=== PATIENT | female | born 1985 | race Caucasian/White ===

== ENCOUNTER 2024-07-23 00:01 | Emergency (ER) | payer BC, MEDICAID, SELFPAY ==
[2024-07-23 00:06] VITALS: BP 153/101; PULSE 105; RESP 18; TEMP 36.7; O2SAT 100; BMI 34.7
--- NOTE | 2024-07-23 01:01 | ED_ITS ---
HPI - Wound/Laceration 2 General: Chief Complaint: Wound/Laceration Stated Complaint: cut left thumb very deep Time Seen by Provider: 07/23/24 00:46 History of Present Illness: 38-year-old female with laceration when throwing a glass pickle jar into recycle bin across the lateral portion of distal right thumb. No nail involvement. This occurred just prior to events. Tetanus is not up-to-date. Bleeding is controlled. Associated symptoms: Denies chills or fever(s) Related Data Home Medications ?Medication ?Instructions ?Recorded ?Confirmed LOMOTRIGINE PO 09/15/19 01/20/24 buprenorphine 4 mg-naloxone 1 mg 1 film sublingual [place] LY 09/15/19 01/20/24 sublingual film (Suboxone) citalopram 20 mg tablet (Celexa) 20 mg PO DAILY 01/20/24 Previous Rx's ?Medication ?Instructions ?Recorded fluticasone propionate 50 1 spray intranasal DAILY PRN 10/16/22 mcg/actuation nasal allergy symptoms #16 grams spray,suspension (Flonase Allergy Relief) clindamycin HCl 300 mg capsule 300 mg PO Q6H 7 days #2 8 caps 01/18/24 cephalexin 500 mg capsule 500 mg PO BID 4 days #8 caps 07/23/24 Allergies Allergy/AdvReac Type Severity Reaction Status Date / Time Penicillins Allergy ALGY-Hives Verified 01/20/24 15:54 Review of Systems 2 Const: Denies: fever(s) or chills Musc: Reports: joint pain, joint redness and other (laceration) Skin/Breast: Reports: surgical incision PFSH ED 2 PFSH: Social History Smoking and tobacco/nicotine status: unknown if used tobacco/nicotine Physical Exam 2 Extremity: COMMON NORMALS: full ROM and capillary refill normal NARRATIVE EXTREMITY EXAM: laceration RIGHT UPPER EXTREMITY: Yes hand & digits EXTREMITY IMAGE (FRONT): 1. 5.5 cm laceration to right thumb Procedures Laceration Laceration 1: Site: upper extremity (right thumb) Side (If applicable): right Size (cm): 5.5 Description: linear Depth: simple, single layer Local Anesthetic: lidocaine 1% Amount of anesthesia used (mL): 4 Pre-repair: wound explored and irrigated extensively Skin layer closed with: nylon Size (cm): 4-0 Number of sutures: 6 Technique: simple, interrupted Course 2 Vital Signs: Vital signs: Vital Signs Temperature 98.0 F 07/23/24 00:06 Pulse Rate 105 H 07/23/24 00:06 Respiratory Rate 18 07/23/24 00:06 Blood Pressure 153/101 07/23/24 00:06 Pulse Oximetry 100 07/23/24 00:06 Oxygen Delivery Me thod Room Air 07/23/24 00:06 MDM - Wound/Laceration Medical Decision Making 38-year-old female presents with cut to right distal lateral thumb without nail involvement required sutures, tetanus, and prophylactic antibiotics. Patient tolerated without issues. All of her questions were answered to her satisfaction. Discussed with patient to remove in 7-10 days. No radiology studies performed this visit Discharge Plan Discharge Patient Disposition: Home Clinical Impression: Laceration of right thumb Qualifiers: Encounter type: initial encounter Damage to nail status: without damage Foreign body presence: without foreign body Qualified Code(s): S61.011A - Laceration without foreign body of right thumb without damage to nail, initial encounter Condition: Stable Prescriptions: New cephalexin 500 mg capsule 500 mg PO BID 4 Days Qty: 8 0RF No Action LOMOTRIGINE PO buprenorphine-naloxone [Suboxone] 4-1 mg film 1 film SUBLINGUAL DAILY citalopram [Celexa] 20 mg tablet 20 mg PO DAILY fluticasone propionate [Flonase Allergy Relief] 50 mcg/actuation spray,suspension 1 spray intranasal DAILY PRN (Reason: allergy symptoms) Qty: 16 0RF Rx Instructions: administer into each nostril clindamycin HCl 300 mg capsule 300 mg PO Q6H 7 Days Qty: 28 0RF Discharge Orders: Discharge ED (Routine); Ordered 07/23/24 Ordered By: Kitty De Leon Discharge Diet: Usual diet Discharge Activity: Resume usual activity Patient Instructions: Laceration (ED) Activity Restrictions/Additional Instructions: Tylenol and ibuprofen for pain Remove in 7-10 days Wash hands daily with antibacterial soap. Cover initially, may be removed after 24 hours. Utilize probiotic or active culture yogurt while on antibiotics x 4 days. Antibiotics were called to [facility]. Print Language: Danish Coding Level of Care Code ED [employer] for Peggy Hernandez
[2024-07-23] MEDS: lidocaine 1% 10 ML INJ 20 ML INTRADERMA (01:45)
[2024-07-23] MEDS: tetanus-dipt-pertussis 0.5 mL SDV IM (01:46)
[2024-07-23] MEDS: cephALEXin 500 mg Capsule PO (01:46)
== END 2024-07-23 02:00 | disposition home or self-care (01) ==
PROVIDERS: Emergency Provider Physician Assistant
DX: S61.011A Laceration without foreign body of right thumb without damage to nail, initial encounter (principal); W25.XXXA Contact with sharp glass, initial encounter
CPT/HCPCS: 12002; 90471; 90715; 99283; J9999